=== PATIENT | female | born 1985 | race Caucasian/White ===

== ENCOUNTER 2021-06-19 08:40 | Outpatient (CLI) | payer BC | END 2021-06-19 08:41 | disposition home or self-care (01) | LOC: CSHMRI 08:40 | PROVIDERS: ATTEND Orthopaedic Surgery Hand Surgery | DX: M65.842 Other synovitis and tenosynovitis, left hand (principal); M65.832 Other synovitis and tenosynovitis, left forearm; S56.512A Strain of other extensor muscle, fascia and tendon at forearm level, left arm, initial encounter; M67.432 Ganglion, left wrist ==

== ENCOUNTER 2021-12-01 14:30 | Outpatient (CLI) | payer BC | END 2021-12-01 14:31 | disposition home or self-care (01) | LOC: CSHMAMMO 14:30 | PROVIDERS: ATTEND Obstetrics & Gynecology | DX: Z12.31 Encounter for screening mammogram for malignant neoplasm of breast (principal) | CPT/HCPCS: 77063; 77067 ==